=== PATIENT | female | born 1965 | race Caucasian/White ===

== ENCOUNTER → 2016-07-11 06:40 | Day surgery (SDC) | payer OTHER ==
--- NOTE | 2016-07-03 21:53 | HP ---
HISTORY AND PHYSICAL: DATE OF OFFICE VISIT: 07/03/16 DATE OF ADMISSION/SURGERY: 07/11/16 SURGEON: Talisha Gonzalez MD PROCEDURE: Right shoulder arthroscopy with subacromial decompression, acromioplasty, possible biceps tenodesis, and possible rotator cuff repair. CHIEF COMPLAINT: Right shoulder pain. HISTORY OF PRESENT ILLNESS: Ms. Mendez is a 51-year-old female with complaints of right shoulder pain. She has failed conservative management and has elected to proceed with surgery, which is scheduled for 07/11/16. PAST MEDICAL HISTORY: Denies. PAST SURGICAL HISTORY: 1. Right shoulder arthroscopy. 2. Hysterectomy. CURRENT MEDICATIONS: Ibuprofen. ALLERGIES: To SULFA, ERYTHROMYCIN, and MOBIC. FAMILY HISTORY: Long bone and bladder cancer. SOCIAL HISTORY: She is a 51-year-old female, lives with her significant other. 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 She does not smoke or use drugs. She uses alcohol socially. REVIEW OF SYSTEMS: A complete 14-point review of systems was reviewed with the patient. All was negative or noncontributory. PHYSICAL EXAMINATION GENERAL: She is well developed, well nourished, in no acute distress. VITAL SIGNS: She stands 5-feet 1-inch tall, weighs 150 pounds, her blood pressure 136/87, and her heart rate is 90. HEENT: She is normocephalic, atraumatic. NECK: Supple. No palpable lymph nodes. Trachea is midline. PULMONARY: The lungs are clear to auscultation bilaterally. No wheezes, rhonchi, or rales. CARDIO: Regular rate and rhythm. Strong S1, S2. No murmurs, gallops, or rubs. No peripheral edema. ABDOMEN: Soft, nontender, and nondistended. NEUROLOGICAL: She is alert and oriented x3. Cranial nerves II through XII are intact. MUSCULOSKELETAL: Right upper extremity: The skin is intact. She is able to forward flex to 150, abduct to 120, externally rotate to 55, and internally rotate the thoracolumbar spine. She has positive Neer and Zavala. Positive O' Boo's. Positive Speed's test. She has intact sensation and 2+ distal pulses. ASSESSMENT AND PLAN: Ms. Mendez is a 51-year-old female with right shoulder pain who has failed conservative management. She has elected to proceed with right shoulder arthroscopy with subacromial decompression, acromioplasty, possible biceps tenodesis, and possible rotator cuff repair with Dr. Gonzalez and it is scheduled for 07/11/16. MARYLOU ESCUDERO [id number]/[facility] #: [id number] JOLEEN
[~2016-07-11 06:40] MED LIST: Atracurium* 10 MG/ML 10 ML VIAL ONE; Buffered Lidocaine 1% SYR 3ML* 3 ML/SYR SYRINGE INTRADERM ONE; Buffered Lidocaine 1% SYR 3ML* 3 ML/SYR SYRINGE ONE; Bupivacaine 0.25% SDV* 30 ML ONE; Dexamethasone IV* 4 MG/ML 1 ML (4 MG) IV SLOW PU ONE; Dexamethasone IV* 4 MG/ML 1 ML (4 MG) ONE; DiMENhydriNATE IV* 50 MG/ML VIAL IV PUSH PRN; DiMENhydriNATE IV* 50 MG/ML VIAL ONE; HYDROmorphone INJ* 1 MG/ML CARPUJECT SYRINGE IV PRN; Ketorolac INJ* 30 MG/ML 1 ML VIAL ONE; Midazolam* 1 MG/ML 2 ML VIAL (2 MG) ONE; Midazolam* 1 MG/ML 5 ML VIAL (5 MG) ONE; Ondansetron INJ* 2 MG/ML VIAL ONE; Propofol* 10 MG/ML 20 ML BTL IV PUSH ONE; ROPIVACAINE 5 MG/ML 30 ML BTL (0.5%) ONE; Scopolamine 1.5 mg* PATCH ONE; Scopolamine 1.5 mg* PATCH TRANSDERM PRN; Scopolamine PATCH Remove* 1 NOTE MISC PATCH OFF ONE; ceFAZolin 2 GM PREMIX (*) 2 GM/50 ML BAG IVPB ONE; fentaNYL* 50 MCG/ML 2 ML VIAL (100 MCG VIAL) IV PRN; fentaNYL* 50 MCG/ML 2 ML VIAL (100 MCG VIAL) ONE; oxyCODONE/Acetamin 5/325 MG* TAB PO PRN
[2016-07-11 14:16] VITALS: BP 114/82
--- NOTE | 2016-07-12 19:40 | OP ---
OPERATIVE REPORT: DATE OF OPERATION: 07/11/2016 - SDS. DATE OF : 61 SURGEON: Talisha Gonzalez MD Anesthesia: General with interscalene block Web Portal Developer: MARYLOU Rodas PRE-OP DIAGNOSIS: Right shoulder high grade partial thickness tear of rotator cuff, bicipital tendinits, impingement POST-OP DIAGNOSIS: Right shoulder high great partial thickness tear of supraspinatus tendon, bicipital tendinitis, impingement OPERATIVE PROCEDURE: Right shoulder arthroscopy with: 1. glenohumeral debridement 2. Subacromial decompression 3. rotator cuff repair, double row 4. subpectoral biceps tenodesis INDICATIONS: Claudine is a 51-year-old female who sustained a work-related injury to her shoulder on August of 2015. She initially was getting better with conservative management, but she continued to have persistent pain and difficulty. MRI was reviewed that demonstrated high-grade partial-thickness tear as well as bicipital tendinitis. She had a previous history of instability surgery, which she had completely recovered from. After extensive discussion, the risks and benefits of surgery and obtaining Workers' Comp approval she has elected to proceed with surgery. Risks included, but are not limited to, bleeding, infection, damage to nerves, vessels, surrounding structures, wound nonhealing, persistent pain, need for further surgery, failure of the repair, stiffness, persistent pain, scarring, DVT, and risk of anesthesia. DESCRIPTION OF PROCEDURE: The patient was greeted in the preoperative area by the attending surgeon. The correct extremity was marked and consent was confirmed. The patient was brought back to the operating suite where she was placed in supine position. She underwent interscalene nerve block with the attending anesthesiologist. She tolerated the nerve block well, after which she underwent general anesthesia and endotracheal intubation. The patient was then placed in the left lateral decubitus position and the right arm was suspended with 10 pounds of traction. The shoulder was then prepped and draped in the usual sterile fashion beginning with chlorhexidine soap and alcohol, and a final prep with ChloraPrep. After appropriate surgical pause indicating side, site, procedure, and admission of antibiotics, the standard posterolateral portal was made. The scope was introduced to the joint and with somewhat difficulty into the glenohumeral joint; therefore, an initial access to the subacromial space. The lateral portal was then made and a shaver was introduced to do bursectomy of the joint space. It was evident there was high-grade partial tearing of the bursal side of the supraspinatus tendon. The undersurface of the acromion was skeletonized with the electrocautery device and demonstrated an irregular anterolateral spur. After this was complete, the anterior portal was made in line with the AC joint and using this as guide for an intra-articular access. This was then the switching stick and the anterior cannula was placed. The scope was then placed down this and the joint was visualized. This helped to allow for posterior portal placement. Once the posterior portal was then placed , the joint was examined. The humeral head had grade 0 to 1 changes. The glenoid head had grade 1 changes. The biceps was scarred anteriorly with erythema. The shaver was brought through and the biceps was taken through range of motion. It was found to be quite inflamed; therefore, a tenotomy was done. The superior labrum had unstable fraying which was debrided back. The subscapularis was identified that was intact and the undersurface of the supraspinatus also had high-grade partial-thickness articular-sided tear. This was debrided back carefully. After debridement was complete, the scope was repositioned in the subacromial space. The subacromial decompression was completed by using a 4-0 arthroscopic bur to do an acromioplasty. Once this was complete, debris was removed from the joint and attention was directed to the rotator cuff. Because she had bursal and articular- sided tearing, decision was made to repair this as this was likely what was causing her symptoms. An 11-blade was brought into complete the tear. The shaver was used to debride the footprint as well as the rotator cuff. The rasp was used to debride that as well as was the electrocautery device. Once this was done, two 4.75 Healicoil anchors were placed along the medial row along the anterior and posterior aspects of the tear. The sutures were passed in horizontal mattress configuration and then tied down. One suture strand from each of the knots was then passed into a lateral footprint anchor, which was then used to complete the double row repair. Final images were obtained. It showed the rotator cuff was approximated and compressed to the greater tuberosity. All fluid and debris was removed from the joint. The bed was air planed to the right side. The anterior aspect of the shoulder was reprepped again using ChloraPrep. A 15-blade was used to make the anterior incision in line with the biceps encompassing the inferior two-thirds of the pec tendon. The soft tissues were dissected using Metzenbaum scissors to expose the fascia. All remainder of dissection was done bluntly. Bette was used to help elevate this and expose the bicipital groove. The biceps was identified. Clyde in the fascia was made and the biceps was retrieved. It was very adhesive and scarred, it was very inflamed, and images taken to reflect that. Once this was retrieved through the wound, the bicipital groove was prepared with the electrocautery device, then a ball rasp and osteotome to help promote irritation in the bicipital groove and facilitate healing. The Q-Fix anchor was drilled unicortically into the bicipital groove and the Q-Fix anchor was deployed with good purchase. The sutures were then passed through the biceps approximately 1 cm proximal to the musculotendinous junction in a Avtar- Rhett type configuration. The excess biceps stump was then sharply excised and the biceps was shuttled back to the groove. The wound was copiously irrigated. Hemostasis was obtained. The anterior wound was closed in layers with 2-0 Vicryl and 3-0 Monocryl. The portals were closed with 3-0 nylon. Sterile dressings were applied. The anterior wound was injected with about 20 cc of 0.25% Marcaine. Sterile dressings were applied as well as an UltraSling. The patient was then awoke from anesthesia and transferred to the PACU in stable condition. POSTOPERATIVE PLAN: She will be nonweightbearing. She will be in the sling for 6 weeks. She will be allowed to come out for elbow, wrist, and hand range of motion as well as pendulum exercises. She will be discharged on pain medication and antibiotics. DVT prophylaxis was considered but deferred due to no previous personal or family history. I will see the patient back in 10 to 14 days. [id number]/[facility] #: [id number] [facility] CENTERAngelina
== END | disposition home or self-care (01) ==
LOC: OR 06:40
PROVIDERS: ATTEND Orthopaedic Surgery
DX: S46.011A Strain of muscle(s) and tendon(s) of the rotator cuff of right shoulder, initial encounter (principal); M75.21 Bicipital tendinitis, right shoulder; M75.41 Impingement syndrome of right shoulder; X58.XXXA Exposure to other specified factors, initial encounter; Y93.9 Activity, unspecified; Y92.9 Unspecified place or not applicable; Y99.0 Civilian activity done for income or pay; E66.3 Overweight; K21.9 Gastro-esophageal reflux disease without esophagitis; R20.0 Anesthesia of skin; Z88.1 Allergy status to other antibiotic agents; Z88.2 Allergy status to sulfonamides
CPT/HCPCS: 88304; A9270-GY; C1713; C1776; J0690; J1100; J1240; J1885; J2250; J2405; J2704; J2795; J3010

== ENCOUNTER 2017-03-18 06:28 | Day surgery (SDC) | payer OTHER ==
--- NOTE | 2017-03-08 11:11 | HP ---
PREOPERATIVE HISTORY AND PHYSICAL: DATE OF ADMISSION: 03/18/17 [facility] PROVIDER: Talisha Gonzalez MD * (DICTATED BY MARYLOU ASTORGA) CHIEF COMPLAINT: Right shoulder pain. HISTORY OF PRESENT ILLNESS: Claudine is a 51-year-old female who has been followed by Dr. Gonzalez for right shoulder rotator cuff tear status post repair and biceps tenodesis in July of this year. She did well for a while, but then noticed she had an episode on physical therapy which overstressed her shoulder in November. A new MRI arthrogram was ordered, which shows repeat tearing of the rotator cuff. She still has a significant amount of pain and cannot hold the shoulder out in abduction. She is interested surgical intervention for correction of the problem at this point. PAST MEDICAL HISTORY: None. PAST SURGICAL HISTORY: Right shoulder arthroscopy and right shoulder rotator cuff tear, partial hysterectomy. She reports she was slow to wake up with anesthesia after her hysterectomy. CURRENT MEDICATIONS: Ibuprofen as needed for pain. ALLERGIES: 1. SULFA. 2. ERYTHROMYCIN. 3. MELOXICAM. FAMILY HISTORY: Positive for cancer. Negative for heart disease or diabetes. SOCIAL HISTORY: The patient lives with her significant other. 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 She denies tobacco use. She drinks alcoholic beverages occasionally. She denies illicit drug use. REVIEW OF SYSTEMS: Complete 14-point review of systems was reviewed with the patient. Positive for recent sinusitis and seasonal allergies. All other systems were negative and noncontributory. PHYSICAL EXAMINATION GENERAL: She is a well-developed, well-nourished, pleasant female, in no acute distress at rest. She is alert and oriented x3 with appropriate mood and affect. VITAL SIGNS: 5 feet 1 inch tall, weight is 161 pounds. Blood pressure 130/85, pulse 72. HEENT: Normocephalic, atraumatic. Her hearing and vision are grossly intact. NECK: Her trachea is midline. RESPIRATORY: Lungs are clear to auscultation bilaterally. No wheezes, rales, or rhonchi. CARDIOVASCULAR: Regular rate and rhythm. No murmurs, rubs, or gallops. Normal S1 and S2. ABDOMEN: Soft, nondistended, and nontender. Normal bowel sounds. EXTREMITIES: Exam of the right upper extremity, skin is intact with well healed previous surgical incisions. There is no erythema or warmth. She is able to forward flex and abduct to about 150 degrees. She can externally rotate to 55 degrees and internally rotate to T10. She has pain with extremes with these motions. She also has pain in rotator cuff testing and Elaine test. She has 4+/5 strength of the supraspinatus, 5/5 with belly press and bear hug. She is tender to palpation around the anterior aspect of the shoulder as well as the lateral shoulder. She sensate to light touch in ulnar distribution distally. She has 2+ radial pulse. IMAGING: MR arthrogram was reviewed with the patient, it demonstrates a full thickness tear of the supraspinatus tendon, particularly posteriorly. IMPRESSION: Right shoulder rotator cuff re-tear. PLAN: The patient is to undergo right shoulder arthroscopic rotator cuff repair , decompression, and debridement by Dr. Gonzalez on 03/18/17. The risks, benefits , and postoperative course were discussed with the patient at length and she would like to proceed. A prescription for Percocet was sent to her pharmacy for postoperative pain. All of her questions were answered to her full satisfaction. She is understanding to call should she develop any problems or concerns. MARYLOU ASTORGA [id number]/[facility] #: [id number] MTDD
[~2017-03-18 06:28] MED LIST changes: -Atracurium* 10 MG/ML 10 ML VIAL ONE; +Buffered Lidocaine 0.9% SYRIN* 5 ML/SYR SYRINGE INTRADERM ONE; -Buffered Lidocaine 1% SYR 3ML* 3 ML/SYR SYRINGE INTRADERM ONE; -Buffered Lidocaine 1% SYR 3ML* 3 ML/SYR SYRINGE ONE; -Bupivacaine 0.25% SDV* 30 ML ONE; -Dexamethasone IV* 4 MG/ML 1 ML (4 MG) IV SLOW PU ONE; -Dexamethasone IV* 4 MG/ML 1 ML (4 MG) ONE; -DiMENhydriNATE IV* 50 MG/ML VIAL IV PUSH PRN; -DiMENhydriNATE IV* 50 MG/ML VIAL ONE; +Famotidine IV* 10 MG/ML 2 ML (20 mg) IV ONE; -HYDROmorphone INJ* 1 MG/ML CARPUJECT SYRINGE IV PRN; -Ketorolac INJ* 30 MG/ML 1 ML VIAL ONE; -Midazolam* 1 MG/ML 2 ML VIAL (2 MG) ONE; -Midazolam* 1 MG/ML 5 ML VIAL (5 MG) ONE; +Morphine INJ* 2 MG/ML 1 ML SYRINGE IV PRN; -Ondansetron INJ* 2 MG/ML VIAL ONE; -Propofol* 10 MG/ML 20 ML BTL IV PUSH ONE; -ROPIVACAINE 5 MG/ML 30 ML BTL (0.5%) ONE; -Scopolamine 1.5 mg* PATCH ONE; -Scopolamine PATCH Remove* 1 NOTE MISC PATCH OFF ONE; -ceFAZolin 2 GM PREMIX (*) 2 GM/50 ML BAG IVPB ONE; -fentaNYL* 50 MCG/ML 2 ML VIAL (100 MCG VIAL) ONE
[2017-03-18] MEDS ORDERED: ceFAZolin 2 GM PREMIX (*) 50 ML IVPB ONE (06:38)
[2017-03-18] MEDS ORDERED: Famotidine IV* 10 MG/ML 2 ML (20 mg) ONE (06:39)
[2017-03-18] MEDS ORDERED: Buffered Lidocaine 0.9% SYRIN* 5 ML/SYR SYRINGE ONE (06:39)
[2017-03-18] MEDS ORDERED: Midazolam* 1 MG/ML 5 ML VIAL (5 MG) ONE (07:10)
[2017-03-18] MEDS ORDERED: fentaNYL* 50 MCG/ML 2 ML VIAL (100 MCG VIAL) ONE ×2 (07:10→09:22)
[2017-03-18] MEDS ORDERED: KETAMINE HCL* 50 MG/ML 10 ML VIAL ONE (07:10)
[2017-03-18] MEDS ORDERED: Bupivacaine 0.25% SDV* 30 ML ONE ×2 (07:18→07:33)
[2017-03-18] MEDS ORDERED: Ketorolac INJ* 30 MG/ML 1 ML VIAL ONE (08:39)
[2017-03-18] MEDS ORDERED: Lidocaine 2% PF * 5 ML VIAL ONE (08:39)
[2017-03-18] MEDS ORDERED: Propofol* 10 MG/ML 20 ML BTL IV PUSH ONE (08:39)
[2017-03-18] MEDS ORDERED: Ondansetron INJ* 2 MG/ML VIAL ONE ×2 (08:39→11:18)
[2017-03-18] MEDS ORDERED: PROCHLORPERAZINE INJ 5 MG/ML 2 ML VIAL ONE (09:46)
[2017-03-18] MEDS ORDERED: Scopolamine 1.5 mg* PATCH ONE (09:47)
[2017-03-18] MEDS: PROCHLORPERAZINE INJ 5 MG/ML 2 ML VIAL IV PRN ×2 (09:51→10:07)
[2017-03-18 11:58] VITALS: BP 109/52
--- NOTE | 2017-03-18 12:25 | OP ---
DATE OF OPERATION: 03/18/17 [facility] DATE OF : 61 SURGEON: Talisha Gonzalez MD. TUMOR REGISTRAR: MARYLOU Sapp. An assistant tennis coach was needed for the entirety of the case. ANESTHESIOLOGIST: Dr. Alvarenga. ANESTHESIA: General interscalene block. PRE-OP DIAGNOSIS: Left shoulder retear of her rotator cuff. POST-OP DIAGNOSIS: Left shoulder retear of her rotator cuff. OPERATIVE PROCEDURE: 1. Right shoulder limited glenohumeral debridement. 2. Revision decompression. 3. Revision rotator cuff repair. 4. Removal of foreign body x3. COMPLICATIONS: None. ESTIMATED BLOOD LOSS: Minimal. IMPLANTS: Two Rangel and Nephew Q Healicoils and 1 Multifix anchor. INDICATIONS: Claudine Mendez is a 51-year-old female who had a right shoulder rotator cuff repair with subpectoral biceps tenodesis in July 2016. She was doing okay initially and then she had an adverse event in physical therapy, which resulted in retear of her rotator cuff. Since that time, she has had increasing pain and an MR arthrogram that confirmed a retear. She denies any fevers or chills. No falls. No recent illnesses. After exhausting conservative management, she has elected to proceed with right shoulder revision , rotator cuff repair. Risks and benefits were discussed in length and included , but are not limited to bleeding; infection; damage to nerves; vessels; surrounding structures; the wound nonhealing; persistent pain; need for further surgery; scarring; stiffness; incomplete relief of symptoms; risk of anesthesia. DESCRIPTION OF PROCEDURE: The patient was greeted in the preoperative area by the attending surgeon. The correct extremity was marked and consent was confirmed. The patient then underwent interscalene nerve block by the preanesthesia area after which the patient was brought back to the operative suite where she was placed in the lateral decubitus position. She then underwent general anesthesia and LMA intubation, after which she was positioned appropriately, she was secured with with peg board. All bony prominences were padded. The right arm was draped unsterile with 10 pounds of traction. SCDs and a Yajaira Hugger was placed. The right shoulder was then prepped and draped in usual sterile fashion beginning with chlorhexidine soap, scrub, and alcohol wipe, and a final prep with ChloraPrep. After appropriate surgical pause indicating site, side, procedure, and administration of antibiotics, a standard postero-lateral portal was made sharply with an 11 blade. The scope was introduced into the joint and the joint was examined. There was evidence of the rotator cuff sutures having been torn posteriorly at the border of the supra and infraspinatus tendon. The glenoid had grade 1 to 2 changes. The posterior labrum had stable fraying. The inferior recess was intact. There were grade 1 to 2 changes to the humeral head. The subscapularis was intact. The anterior border of the supraspinatus was still intact, but there was a full thickness tear of the supraspinatus tendon posteriorly encompassing infraspinatus. Most of the debridement was complete. The scope was positioned in the subacromial space. The scope was positioned in the subacromial space. The lateral portals were made in outside-in fashion, a shaver was used to debride the abundant bursa that was present and then expose the rotator cuff. There was evidence of loose sutures that were then carefully removed. The bursa was removed using the electrocautery device as well as the shaver. The undersurface of the acromion was identified and a previous subacromial decompression was done. A revision was done as there was a small ridge right near the AC joint. That was done with a 4-0 oval janki. The rotator cuff was identified and the 3 loose strands of sutures were then removed. The anchors were well embedded into the bone. The greater tuberosity was then prepared using electrocautery device as well as the janki to remove the calcified layer and to allow for a good bony bleeding bed. The rotator cuff was then mobilized. It was also debrided. There was evidence of good vascular flow to the rotator cuff as it was bleeding. A tear was beginning longitudinally between the supra and infraspinatus tendon, but it was very small at this point. At this point, once the tuberosity was prepared, two 4.75 Healicoil anchors were placed in the medial row with care not to penetrate the previous anchors. These were placed with excellent purchase. The sutures were then passed through the rotator cuff in a horizontal mattress fashion encompassing the supra and infraspinatus tendon and tried to close down the beginning of the longitudinal split. The sutures were then tied down using arthroscopic knot tying and then one strand from each was cut. The remaining strands were passed through a Multifix anchor, which was then malleted into position laterally for a lateral row fixation to allow for double row repair. Final images were obtained. The shoulder was taken through range of motion. There was appropriate amount of bony bleeding. The rotator cuff was found to be completely reapproximated. At this point, all loose fluid and debris was removed. Final images were obtained. The wounds were copiously irrigated with sterile saline. The portals were closed with 3-0 nylon. Sterile dressings were applied as well as a Cryo/Cuff and UltraSling. She was awoken from anesthesia and transferred to the PACU in stable condition. POSTOPERATIVE PLAN: She will be nonweightbearing. She will be in a sling for 6 weeks. She will start physical therapy at 4 weeks. She will be discharged on pain medications. DVT prophylaxis was considered, but deferred due to no previous personal or family history. I will see the patient back in 10 to 14 days. [id number]/[facility] #: [id number] MTDD
[2017-03-21] MEDS ORDERED: Scopolomine PATCH Remove* 1 NOTE MISC PATCH OFF ONE (05:44)
== END 2017-03-18 12:28 | disposition home or self-care (01) ==
LOC: OREAST 06:28
PROVIDERS: ATTEND Orthopaedic Surgery
DX: S46.011A Strain of muscle(s) and tendon(s) of the rotator cuff of right shoulder, initial encounter (principal); X58.XXXA Exposure to other specified factors, initial encounter; Y92.9 Unspecified place or not applicable; G89.18 Other acute postprocedural pain; Z88.6 Allergy status to analgesic agent; Z88.1 Allergy status to other antibiotic agents; Z88.2 Allergy status to sulfonamides
CPT/HCPCS: A9270-GY; C1713; J0690; J0780; J1885; J2250; J2405; J2704; J3010